=== PATIENT | female | born 1950 | race Caucasian/White ===

== ENCOUNTER 2018-10-06 05:46 | Day surgery (SDC) | payer OTHER ==
[~2018-10-06] VITALS: Ht 157.5 cm; Wt 93.8 kg
[2018-10-06 07:06] VITALS: Ht 157.5 cm; Wt 93.8 kg
[2018-10-06] MEDS ORDERED: AMLO-147 PO (07:16)
[2018-10-06] MEDS ORDERED: LOSA100T15 PO (07:16)
[2018-10-06] MEDS ORDERED: ASPI-817 PO (07:16)
[2018-10-06] MEDS ORDERED: METF100010 PO (07:16)
[2018-10-06] MEDS ORDERED: SIMV20TA2 PO (07:16)
[2018-10-06] MEDS ORDERED: GLIP-160 PO (07:16)
[2018-10-06] MEDS ORDERED: HYDR25TA6 PO (07:16)
[2018-10-06 07:47] VITALS: BP 169/76; PULSE 89; RESP 14
--- NOTE | 2018-10-06 07:47 | PREAC ---
Date/Time of Note Date/Time of Note DATE: 10/06/18 TIME: 07:45 Anesthesia Eval and Record Evaluation Time Pre-Procedure Interview DATE: 10/06/18 TIME: 07:45 Age 67 Sex female NPO: 8 hrs Preoperative diagnosis Screening Planned procedure Colonoscopy Past Medical History Past Medical History: Includes Cardio: HTN, Dyslipidemia, PPM/AICD Endo: Diabetes GI: Obesity Surgery & Anesthesia Issues No known issue Meds Anticoagulation: No Beta Bebe within 24 hr: No Reason Beta Bebe not given: Pt. not on B-Bebe Reported Medications Losartan Potassium* (Losartan Potassium*) 100 Mg Tablet, 100 MG PO DAILY, TAB 10/06/18 Glipizide XL* (Glipizide XL*) 5 Mg Tabsr, 5 MG PO DAILY, TAB 10/06/18 Hydrochlorothiazide* (Hydrochlorothiazide*) 25 Mg Tab, 25 MG PO DAILY, #30 TAB 10/06/18 Metformin Hcl* (Metformin Hcl*) 1,000 Mg Tablet, 1000 MG PO WITH BREAKFAST, #30 TAB 10/06/18 Aspirin* (Aspirin* EC) 81 Mg Tablet.dr, 81 MG PO DAILY, TAB 10/06/18 Simvastatin (Simvastatin) 20 Mg Tablet, 20 MG PO DAILY, #30 TAB 10/06/18 Amlodipine Besylate* (Amlodipine Besylate*) 10 Mg Tablet, 10 MG PO DAILY, #30 TAB 10/06/18 Meds reviewed: Yes Allergies Coded Allergies: No Known Allergy (Unverified , 10/06/18) Allergies Reviewed: Yes Labs/Studies Labs Reviewed: Reviewed by anesthesiologist test: N/A Studies: ECG (n/a), CXR (n/a) Pre-procedure Exam Airway: Adequate mouth opening, Adequate thyromental dist Mallampati: Mallampati III Teeth: Normal Lung: Normal Heart: Normal ASA Physical Status ASA physical status: 3 Emergency: None Planned Anesthetic General/MAC: MAC Planned Pain Management Parenteral pain med Pre-operative Attestations Prior to commencing anesthesia and surgery, the patient was re-evaluated, there was verification of: *The patient's identity *The results of appropriate recent lab work and preoperative vital signs *The above evaluation not changing prior to induction *Anesthetic plan, risk benefits, alternative and complications discussed with patient/family; questions answered; patient/family understands, accepts and wishes to proceed. MIRNA LANDON MD Oct 06, 2018 07:47
[2018-10-06] MEDS ORDERED: PROPOFOL 40 ML ONE (08:09)
--- NOTE | 2018-10-06 08:11 | PAC ---
Date/Time of Note Date/Time of Note DATE: 10/06/18 TIME: 08:11 Post-Anesthesia Notes Post-Anesthesia Note Last documented vital signs T: 98.0 Activity: WNL Respiratory function: WNL Cardiovascular function: WNL Mental status: Baseline Pain reasonably controlled: Yes Hydration appropriate: Yes Nausea/Vomiting absent: Yes MIRNA LANDON MD Oct 06, 2018 08:11
[2018-10-06 08:33] VITALS: BP_SYST 111; BP_DIAS 55; BP_DIAS 65; PULSE 75; PULSE 80; RESP 12
[2018-10-06 08:37] VITALS: BP 129/63; PULSE 64; RESP 20
== END 2018-10-06 12:55 | disposition home or self-care (01) ==
LOC: GIL 05:46
PROVIDERS: ATTEND Internal Medicine Gastroenterology
DX: Z12.11 Encounter for screening for malignant neoplasm of colon (principal); K64.8 Other hemorrhoids; I10 Essential (primary) hypertension; E11.9 Type 2 diabetes mellitus without complications; E78.5 Hyperlipidemia, unspecified; Z79.84 Long term (current) use of oral hypoglycemic drugs
CPT/HCPCS: 82962